=== PATIENT | male | born 1995 | race African-American/Black ===

== ENCOUNTER 2022-11-18 21:18 | Emergency (ER) | payer OTHER ==
[2022-11-18 21:29] VITALS: BP 146/80; PULSE 76; RESP 18; TEMP 99; BMI 47.4
[2022-11-18] MEDS ORDERED: CLINDAMYCIN HCL 300 MG CAPSULE PO ONE (22:03)
[2022-11-18] MEDS ORDERED: KETOROLAC TROMETHAMINE 60 MG/2 ML VIAL IM ONE (22:03)
[2022-11-18] MEDS ORDERED: CLINDAMYCIN HCL 150 MG CAPSULE (FP) ONE (22:09)
[2022-11-18] MEDS ORDERED: KETOROLAC TROMETHAMINE 60 MG/2 ML VIAL ONE (22:09)
== END 2022-11-18 22:18 | disposition home or self-care (01) ==
LOC: FER 21:18
PROC: 3E0233Z Introduction of Anti-inflammatory into Muscle, Percutaneous Approach (ICD-10-PCS; principal; 2022-11-18)
DX: K08.89 Other specified disorders of teeth and supporting structures (principal)
CPT/HCPCS: 99284-25